=== PATIENT | male | born 1980 | race Caucasian/White ===

== ENCOUNTER 2019-09-27 16:13 | Emergency (ER) | payer BC, SELFPAY ==
[2019-09-27 16:14] VITALS: BP 126/70; PULSE 74; RESP 16; TEMP 36.7; O2SAT 96; BMI 24.3
--- NOTE | 2019-09-27 16:46 | ED.VIS.UPPEX ---
History of Present Illness Chief Complaint: Upper Extremity Injury Informant: Patient Occurred: Today Mechanism/Context: - - see below Context: Sudden Onset Timing: Continuous Quality of Pain: Aching Current Severity: Mild Maximum Severity: Mild Worsened by: bending RUE at elbow Relieved by: remaining still Associated Symptoms: Negative for: Parasthesia, Weakness, Loss of Funtion Narrative: Patient was playing football in the yard with some other boys. He reached out his arm to tag 1, almost hyperextending at the elbow in a sort of way, felt a sudden pop in his elbow region and then sensation of a curled up or overused muscle in his right biceps area. He is right-hand dominant. Past Medical History - Allergies and Home Meds Allergies/Adverse Reactions: Allergies No Known Allergies Allergy (Verified 09/27/19 16:15) Primary Care Physician: Bayron Ball MD [Primary Care Provider] - Past Medical History: None Surgical History: no surgical history Lives: Spouse/ Significant Other Smoking Status: Never smoker Review of Systems Musculoskeletal: Reports: Swelling - Focal, right upper arm, Extremity Pain. Denies: Neck pain, Back pain Neurological: Denies: Weakness, Parasthesia, Numbness Physical Exam Vital Signs/Narrative: Vital Signs Temp Pulse Resp BP Pulse Ox 09/27/19 16:14 98.1 F 74 16 126/70 H 96 General: Well nourished, Well developed, - - Well-appearing, NAD Extremeties: Patient has some mild tenderness at the area of the right volar upper arm at the distal aspect, near the insertion of the biceps tendon at the antecubital fossa, where there is a palpable deficit in comparison with the left. He has a mild deformity consistent with a Patrick muscle of the right biceps. He has full range of motion of the right elbow, there is no bony tenderness or deficit at the insertion of the triceps muscle. Skin: Normal color, No rash, No Trauma Neurological: Alert, Oriented x3, Cranial nerves II-XII grossly intact, Normal Strength, Normal Sensation, Normal Gait Psychological: Normal affect, Normal Mood Diagnostic/Tx/Re-eval - Medical Decision Making Clinically consistent with a biceps tendon rupture distally. Given appropriate orthopedic follow-up and instructions, and a dose of ibuprofen here. ED Disposition - Plan for ED Patient: Disposition: Home or Assisted Living Diagnosis: Rupture of right distal biceps tendon Referrals: Alfred Ordaz MD [STAFF PHYSICIAN] - As soon as possible Additional Instructions: What is a Biceps Tendon Rupture and How is it Fixed? << Back to Blog The biceps muscle group (biceps brachii) is made up of two heads, the long head and the short head. The muscles originate at the shoulder and insert on the radius (short bone in the forearm). The main function of the biceps brachii is to supinate the forearm (pretend like you are holding a cup of soup in the palm of your hand; this position is called ?supination?). The second function of the biceps brachii is to flex (bend) the elbow. Rupture of the biceps tendon can occur proximally (at the shoulder) or distally (at the elbow). Ruptures commonly occur when there is an unexpected force applied to the bicep muscle such as attempting to catch something or someone when they fall. Most ruptures occur when the elbow is in a flexed position. Some people may feel or hear a ?pop? when the tendon separates from the bone. How is a Biceps Tendon Rupture diagnosed? Ruptures of the biceps tendon can usually be diagnosed through history and physical exam. Observation of the injured extremity may reveal significant bruising and swelling, as well as physical deformity. The physical deformity associated with biceps ruptures is termed patrick deformity. The deformity is due to the tendon retracting toward the muscle belly causing a large bulge. X-rays may be ordered to rule out an associated avulsion fracture. An MRI may also be ordered to aid in visualizing the amount of damage sustained to the muscle, tendon, and bone. What is Biceps Tendon Repair surgery? Distal biceps tendon ruptures typically require surgical fixation to restore range of motion and strength to the elbow. This procedure is an open surgical procedure which can be performed on an outpatient basis. The goal is to reattach the tendon to the radius bone using either sutures or anchor with sutures. Proximal biceps tendon ruptures can be treated conservatively with physical therapy and anti-inflammatories. Surgery is considered when a patient continues to have pain despite conservative measures. The biceps tendon is not reattached to its original origin; the biceps is attached to the humerus in a procedure called a ?biceps tenodesis.? Why should I consider Bicep Tendon Surgery? Distal repair for a biceps tendon rupture should be considered in patients that injure the bicep in their dominant arm, or active individuals. The goal of surgery is to restore strength and endurance to the musculature as well as maintain range of motion in the elbow joint. Without surgery, there is a significant probability that function of the injured extremity will be limited. Proximal bicep tendon repair is considered when conservative measures fail or do not relieve pain. What are my restrictions after a Bicep Tendon Surgery? Total healing time for any injury or surgical repair is usually one year. Limitations vary based on distal or proximal repair. Both repairs for a biceps tendon rupture will require the use of a post-operative sling for up to 4 weeks. Physical therapy will begin range of motion and strengthening activities based on protocols established by Dr. Carvajal, or your preferred surgeon. What will be my recovery time? Distal and proximal bicep tendon repairs are performed as an outpatient surgery. Formal physical therapy can begin within 2 days of surgery. Formal therapy can last 12-16 weeks with gradual progression to a home exercise program. Most patients are able to return to normal activity, without restriction, 14-20 weeks after surgery. The variable wide range of return to activity is based on a distal or proximal bicep repair. What are the risks of surgery to repair a biceps tendon rupture? Complications associated with bicep tendon repair are rare. Common risks associated with a distal repair include: decreased strength, decreased nerve sensation, and decrease range of motion at the elbow. Common risks associated with proximal repair include: decreased strength, decreased nerved sensation, and decreased range of motion at the shoulder. Both surgical techniques have associated risk of pain, infection, and slow wound healing. For now let pain be your guide to do not do activities that increase your pain.
[2019-09-27] MEDS: Naproxen 500 MG Tablet PO (17:17)
== END 2019-09-27 17:29 | disposition home or self-care (01) ==
PROVIDERS: Emergency Provider Emergency Medicine; Family Provider Family Medicine; PCP Family Medicine
DX: S46.211A Strain of muscle, fascia and tendon of other parts of biceps, right arm, initial encounter (principal); X50.1XXA Overexertion from prolonged static or awkward postures, initial encounter; Y93.62 Activity, american flag or touch football; Y92.096 Garden or yard of other non-institutional residence as the place of occurrence of the external cause; Y99.8 Other external cause status
CPT/HCPCS: 99283

== ENCOUNTER → 2019-09-28 13:40 | Outpatient (CLI) | payer BC, SELFPAY ==
[2019-09-28 13:36] VITALS: BMI 24.3
--- NOTE | 2019-09-28 13:41 | RAD_ITS ---
STUDY: X-RAY - RIGHT ELBOW REASON FOR EXAM: Male, 39 years old. Pain, no history of trauma. TECHNIQUE: 3 view(s) of the elbow. COMPARISON: None. FINDINGS: Normal visualized humerus, radius and ulna. Normal radiocapitellar and ulnotrochlear articulations. The soft tissue structures are unremarkable. There is no demonstrated fracture. RAD/Elbow min 3 Views IMPRESSION: Normal x-ray examination of the elbow. Electronically Signed: Kelsie Hicks MD at 2:17 EST , Service support ,
== END ==
PROVIDERS: Family Provider Family Medicine; PCP Family Medicine; Referring Provider Orthopaedic Surgery; Visit Provider Orthopaedic Surgery
DX: M25.521 Pain in right elbow (principal)
CPT/HCPCS: 73080

== ENCOUNTER → 2019-10-03 09:39 | Outpatient (CLI) | payer BC, SELFPAY ==
[2019-09-29 10:10] VITALS: BMI 24.3
--- NOTE | 2019-10-03 09:40 | MRI_ITS ---
STUDY: MRI RIGHT ELBOW REASON FOR EXAM: Male, 39 years old. Injury. Evaluate for biceps tendon tear. TECHNIQUE: Standardized fat and water weighted pulse sequences were obtained in all 3 orthogonal planes. COMPARISON: None. FINDINGS: Small elbow joint effusion (sagittal series 7 image 14). Normal radial collateral ligamentous complex. Common extensor tendinosis (coronal series 6 image 14). Normal ulnotrochlear articulation. Normal ulnar collateral ligamentous complex. Common flexor tendinosis (coronal series 6 image 15). The cubital tunnel is normal, with a normal ulnar nerve. Full-thickness full width biceps tendon tear with the tendon retracted approximately 3.5 cm from its insertion site (axial series 3 images 1-16, sagittal series 7 images 9-14). Hematoma and fluid between the retracted biceps tendon and the radial tuberosity (coronal series 6 images 3-13). Normal lacertus fibrosis. Normal brachialis musculotendinous insertion. Normal triceps tendon and teno-osseous insertion. Normal olecranon process. The visualized distal humerus, proximal radius, and ulna are normal. The visualized muscles of the distal arm and proximal forearm are normal. The soft tissue structures are unremarkable. MRI/Upper Ext Joint Only(Routine) IMPRESSION: Common flexor and common extensor tendinosis. Full-thickness 4 with retracted biceps tendon tear as described. Small joint effusion. Electronically Signed: Aldair Chan MD at 10:30 EST , Service support ,
== END ==
PROVIDERS: Family Provider Family Medicine; PCP Family Medicine; Referring Provider Orthopaedic Surgery; Visit Provider Orthopaedic Surgery
DX: S46.211A Strain of muscle, fascia and tendon of other parts of biceps, right arm, initial encounter (principal)
CPT/HCPCS: 73221

== ENCOUNTER 2019-12-22 07:30 | Outpatient (RCR) | payer BC, SELFPAY ==
[2019-09-29 10:10] VITALS: BMI 24.3
--- NOTE | 2019-11-23 09:06 | HP.OTEVAL_ITS ---
Patient's Visit Information GAMALIEL NELSON is a 39 year old M, referred to Occupational Therapy by Madelyn Collins DO, with a diagnosis of biceps tendon. Date of Evaluation: 11/17/19 Occupational Therapist: Johana Sanchez, ANGIE/Son, CHT - Subjective Subjective: This 39 year old male was seen for OT eval with dx of right distal biceps tendon rupture. Pt states injury Sep 27 and underwent sx Oct 08 biceps tendon repair. Pt arrives currently 5 weeks s/p. Pt is not wearing hinge brace-states he stopped wearing it last week and has not discomfort. Pt would like to know what he can and can't do at this time. 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 pt would like to return to his PLOF. - ROM Elbow: right -10/145 left -/145 Forearm: right supination 80 left supination 80 right pronation 90 left pronation 90 - Strength Bench Tool Maker: right 105# left 115# Lateral Pinch: right 18# left 16# Tripod Pinch: right 20# left 18# Strength Comments: pt demo weaker manager product design with right but weaker pinch with left - Sensation Sensation Comments: pt reports dull/numbness throughout readial nerve distr ibutions radial styloid to 15cm proximal up his arm- - Quick DASH-Disab of Arm,Shoulder& Hand Quick DASH Score: 55.2625 - Goals Goal:100% adherence to protocol: Yes Comment: Biceps tendo repair Goal:Daily scar massage when approriate: Yes Goal:Bench Tool Maker/Pinch strength at least 75% of unaffected hand: Yes Goal:No pain with affected hand use: Yes Goal:Full use of affected hand in daily activities including: Yes - Rehabilitation General Assessment: Pt currently 5 weeks s/p a right distal biceps tendon repair. Pt limited with ROM and strength due to healing structures. Pt would benefit from skille OT services 1-2x week for 6 weeks to assist pt with recovery and strength to return to his PLOF. Today pt ed. on Green protocol, ROM and scar mtg. pt demo understanding and agree to POC Rehabilitation Potential: Good - Anticipated Interventions Anticipated Interventions: A/AAROM/PROM, Strengthening, Scar Care, Triggerpoint Release, Desensitization, Modalities, Joint Protection/Energy Conservation, Ergonomic Education - Visit Plan Frequency: 1-2x /Week Duration: 2 Months TEXT: Thank you for the opportunity to evaluate your patient. For Medicare and Medicare HMO plans, please review the plan of care and approve it. It will need to be FAXED BACK to us at [phone] for Medicare purposes. Please let me know if there are questions or concerns regarding this plan of care. Physician Signature: Date:
--- NOTE | 2020-03-19 09:44 | HP.OT.NRP ---
GAMALIEL NELSON was seen in my office for initial evaluation on 11/17/19. The following Plan of Care was established for this patient: Initial Frequency: 1-2x /Week Initial Duration: 2 Months Plan: see pt in 4 weeks Anticipated Interventions: A/AAROM/PROM, Strengthening, Scar Care, Triggerpoint Release, Desensitization, Modalities, Joint Protection/Energy Conservation, Ergonomic Education This patient was last seen in our office 12/22/19. Pertinent comments regarding their Occupational therapy will appear below: pt was seen for 3 OT visit- last visit therapist stressed need of repair to heal vs initiating PRE- pt demo understanding- therapsit gave strict instructions on need of increase time prior to PRE and when allowed giving copy of protocol. pt demo understanding- pt has not returned for further skilled OT services at this time and is D/c due to time lapse in care. At this point I will be discontinuing this patient from occupational therapy. I would be happy to see this patient again in the future if found appropriate by the physician. Thank you! Johana Sanchez, OTR/L, CHT
== END 2019-12-22 19:00 | disposition home or self-care (01) ==
LOC: OT 07:30
PROVIDERS: Family Provider Family Medicine; PCP Family Medicine; Referring Provider Orthopaedic Surgery; Visit Provider Orthopaedic Surgery
DX: S46.211D Strain of muscle, fascia and tendon of other parts of biceps, right arm, subsequent encounter (principal)
CPT/HCPCS: 97110; 97166; 97530